=== PATIENT | female | born 1965 | race American Indian/Alaskan Native ===

== ENCOUNTER 2016-11-25 13:08 | Outpatient (CLI) | payer MEDICARE ==
--- NOTE | 2016-11-26 10:16 | Mammography Report ---
BILATERAL DIGITAL SCREENING MAMMOGRAM with CAD: 11/25/16 13:08:00 CLINICAL: Routine screening. COMPARISON:12/21/09 FINDINGS: The breasts are almost entirely fatty. A relatively central low-density focal asymmetry of the right breast is new and requires additional imaging. No architectural distortion or suspicious calcifications. The left breast is negative with and upper-outer biopsy clip. IMPRESSION: Right focal asymmetry requiring additional imaging. BI-RADS CATEGORY: 0--Needs Additional Imaging RECOMMENDATION: Recall for spot compression views of the right breast and right breast ultrasound if needed. The patient should be scheduled for a right diagnostic mammogram and for a right breast ultrasound with an order for a "right diagnostic mammogram and a right breast ultrasound if needed". COMMENT: Patient follow-up letters are generated by our [employer] application.
== END 2016-11-25 13:09 | disposition home or self-care (01) ==
LOC: SPVWC 13:08
PROVIDERS: ATTEND Family Medicine
DX: Z12.31 Encounter for screening mammogram for malignant neoplasm of breast (principal)
CPT/HCPCS: 77067; G0202

== ENCOUNTER 2016-12-25 11:47 | Outpatient (CLI) | payer MEDICARE ==
--- NOTE | 2016-12-25 13:40 | Ultrasound Report ---
RIGHT DIGITAL DIAGNOSTIC MAMMOGRAM with CAD and RIGHT BREAST ULTRASOUND: 12/25/16 11:30:00 CLINICAL: Recall for asymmetry. COMPARISON:11/25/16screening FINDINGS: Spot compression views demonstrate a persistent low density focal asymmetry with ill-defined margins. Ultrasound of the right breast (including all four quadrants and the retroareolar area) was performed. Two contiguous solid oval hypoechoic masses at 1 o'clock 4 cm from the level correlate with the mammographic asymmetry. The larger measures 1.0 x 0.8 x 0.3 cm and the smaller measures 5 x 2 x 4 mm. IMPRESSION: Probably benign right breast masses at 1 o'clock 4 centimeters from the nipple . BI-RADS CATEGORY: 3-Probably Benign RECOMMENDATION: 6 month followup right mammogram and right breast ultrasound. ACR BI-RADS MAMMOGRAPHIC CODES: 0 = Needs additional imaging evaluation; 1 = Negative; 2 = Benign; 3 = Probably benign; 4 = Suspicious; 5 = Malignant; 6 = Known biopsy-proven malignancy COMMENT: 1. Dense breast tissue, i.e., adenosis, fibrocystic changes, etc., may obscure an underlying neoplasm. 2. Approximately 10% of cancers are not detected with mammography. 3. A negative mammography report should not delay biopsy if a clinically suspicious mass is present. COMMENT: Patient follow-up letters are generated via our [employer] application.
== END 2016-12-25 11:48 | disposition home or self-care (01) ==
LOC: SPVWC 11:47
PROVIDERS: ATTEND Family Medicine
DX: N63 Unspecified lump in breast (principal)
CPT/HCPCS: 76641; G0206

== ENCOUNTER 2017-05-20 14:42 | Outpatient (CLI) | payer MEDICARE ==
--- NOTE | 2017-05-25 18:54 | Magnetic Resonance Report ---
MR scan of the cranium was performed with and without contrast. Pulse sequences included: 1. T1 weighted sagittal and axial images without contrast and T1 axial images with contrast and T1 weighted reformatted sagittal and coronal images with contrast 2. T2 weighted axial and coronal images 3. FLAIR axial images 4. Diffusion-weighted axial images 5. Apparent diffusion coefficient images 6. gradient echo axial images Views of the posterior fossa showed a normal craniocervical junction. Cerebellar pontine angles were normal with normal seventh-eighth nerve complexes. Brainstem and cerebellum were normal. The ventricular system showed no dilatation or distortion. Images of the hemispheres showed no areas of increased or decreased signal. Sinuses, flow voids in the [place], orbits, and basal ganglia were normal. There are no abnormal areas of enhancement with contrast. There was an empty sella. Impression: Normal MR scan of the cranium with and without contrast except for an empty sella
== END 2017-05-20 14:43 | disposition home or self-care (01) ==
LOC: SPVIMAG 14:42
PROVIDERS: ATTEND Specialist
DX: R20.2 Paresthesia of skin (principal)
CPT/HCPCS: 70553; A9577

== ENCOUNTER 2017-07-31 10:13 | Outpatient (CLI) | payer MEDICARE ==
--- NOTE | 2017-07-31 12:55 | Mammography Report ---
RIGHT DIGITAL DIAGNOSTIC MAMMOGRAM with CAD and RIGHT BREAST ULTRASOUND: 07/31/17 10:13:00 CLINICAL: Followup two right breast masses. COMPARISON:12/25/16 FINDINGS: Stable low-density poorly marginated retroareolar mass which correlates with previously described solid masses by ultrasound. No new mass, architectural distortion or suspicious calcifications. Ultrasound of the right breast demonstrated two oval solid hypoechoic relatively smooth contiguous masses at 1 o'clock 4 cm from the nipple. The larger measures 1.1 x 0.7 x 0.3 cm compared to 1.0 x 0.8 x 0.3 cm and the smaller measures 0.7 x 0.3 x 0.6 cm compared to 0.5 x 0.2 x 0.4 cm. IMPRESSION: Two solid right breast masses at 1 o'clock with morphology suggestive of benign fibroadenomas. The smaller of the 2 lesions measure slightly larger. Recommend a six-month followup right breast ultrasound along with a bilateral screening mammogram. BI-RADS CATEGORY: 3 - - Probably Benign ACR BI-RADS MAMMOGRAPHIC CODES: 0 = Needs additional imaging evaluation; 1 = Negative; 2 = Benign; 3 = Probably benign; 4 = Suspicious; 5 = Malignant; 6 = Known biopsy-proven malignancy COMMENT: 1. Dense breast tissue, i.e., adenosis, fibrocystic changes, etc., may obscure an underlying neoplasm. 2. Approximately 10% of cancers are not detected with mammography. 3. A negative mammography report should not delay biopsy if a clinically suspicious mass is present. COMMENT: Patient follow-up letters are generated by our [employer] application.
== END 2017-07-31 10:14 | disposition home or self-care (01) ==
LOC: SPVWC 10:13
PROVIDERS: ATTEND Family Medicine
DX: N63.10 Unspecified lump in the right breast, unspecified quadrant (principal); N64.89 Other specified disorders of breast; I11.0 Hypertensive heart disease with heart failure; I50.9 Heart failure, unspecified; J18.9 Pneumonia, unspecified organism; J45.909 Unspecified asthma, uncomplicated